=== PATIENT | male | born 1955 | race Caucasian/White ===

== ENCOUNTER 2024-08-04 06:49 | Outpatient (CLI) | payer MEDICARE, SELFPAY ==
[2024-07-22 12:39] VITALS: BMI 27.8
--- NOTE | 2024-07-22 12:45 | PC.NURSE ---
Pre Radiology instructions Report to the outpatient giuliano lai on date __08/04/24___ at time __0830am for procedure Time: _10:30am___ YOU MAY BE MONITORED AT HOSPITAL FOR UP TO 4 HOURS AFTER YOUR PROCEDURE. A visitor will be allowed to accompany the patient into the hospital. You and your visitor will be asked to self-screen and do not enter if you have any COVID symptoms. A mask is OPTIONAL within the hospital. Patients are to have no food or drink 6 hours prior to procedure time Driving will be restricted after the procedure, you must have a person to drive you home. Labs will be drawn in preop area and once reviewed, you will be taken to radiology area for procedure. When the procedure is completed, you will be taken to outpatient where you will be monitored for several hours. You may have one visitor in this area. Other than holding anti-coagulants, patient may take other medication(s) as scheduled. Prior to your appointment date patients are instructed to hold anti-coagulants after discussing with ordering provider to stop. If unable to discontinue anti-coagulants please notify radiologist. ? No aspirin or warfarin (Coumadin) for 7 days prior to the procedure. ? No clopidogrel (Plavix), ticagrelor (Brilinta), prasugrel (Effient) or dabigatran (Pradaxa) for 5 days prior to the procedure. ? No rivaroxaban (Xarelto), apixaban (Eliquis), dipyridamole (Aggrenox or Persantine) or cilostazol (Pletal) for 2 days prior to the procedure. Medications to discontinue per physician: __None Date to take last dose: ___None Please leave all valuables, including medications, at home the day of procedure. The hospital will not accept responsibility for valuables. Wear comfortable, loose fitting clothing.? Follow any additional instructions given to you from ordering provider. Telephone instructions given to ___patient and asked if any additional questions and then verbalized understanding. Patient advised to call scheduling provider office or registration scheduling [phone] if any additional questions.
[2024-08-04] VITALS (7 sets, daily range): BP systolic 129–150; BP diastolic 77–95; PULSE 69–70; RESP 18; TEMP 36.3; O2SAT 99; BMI 27.8
--- NOTE | ~2024-08-04 | XR_ITS ---
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 TECHNIQUE: 5 views of cervical spine including flexion and extension views were obtained. COMPARISON: None. FINDINGS: There is 2 mm retrolisthesis of C5 on C6, which reduces with flexion. There is 9 degrees le vocurvature of upper cervical spine and 11 degrees dextroscoliosis of lower cervical spine. C6 is a b utterfly segment. There is interbody fusion at C4-C5 and C6-C7. There is moderately decreased disc he ight at C3-C4 and mildly decreased disc height at C5-C6. There is severe uncovertebral joint osteoart hritis bilaterally at C3-C4 and on the left at C5-C6. There is multilevel [id number]-vbdkurdx facet join t osteoarthritis. There is mild central canal stenosis at C3-C4 and C5-C6. No prevertebral soft tissu e swelling. IMPRESSION: 1. Anterior and posterior fusion at C4-C5 and C6-C7. 2. Moderate cervical spondylosis. 3. Levocurvature of upper cervical spine and dextroscoliosis of lower cervical spine. Reviewed, dictated and finalized at location A. NSKEEPER LABORER
--- NOTE | ~2024-08-04 | CT_ITS ---
EXAMINATION: 1. XR myelogram spine cervical 2. 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 TECHNIQUE: The procedure including the risks, benefits, and alternatives was discussed with the patie nt. Risks discussed included spinal headache, bleeding, and infection. The patient understood the ris ks and agreed to proceed. A timeout was performed to verify the patient's name, date of , and procedure to be performed. The skin overlying the L3-L4 level was prepped and draped in usual steri le fashion. Subcutaneous 1% lidocaine was used for local anesthesia. A 22 gauge spinal needle was a dvanced under fluoroscopic guidance. 10 mL Omnipaque 300 was injected into the intrathecal space. The needle was removed and the entry site was cleaned and dressed. There were no immediate complication s. Multiple fluoroscopic images of the spine were obtained. Fluoroscopy exposure time was 0.3 minutes . The total number of images was 3. Computed tomography (CT) of the cervical spine was performed with out intravenous contrast. Automated exposure control and iterative reconstruction technique were empl oyed. The dose-length product was 460.26 mGy-cm. COMPARISON: Cervical spine CT 07/09/2024 FINDINGS: CERVICAL MYELOGRAM: Real-time fluoroscopy demonstrates the needle at the L3-L4 level. Contrast is see n to move into the cervical spine with the patient's head tilted down. The spine will be further desc ribed on the post myelogram CT. POST MYELOGRAM CT CERVICAL SPINE: There is 2 mm anterolisthesis of C3 on C4. There is 9 degrees levoc urvature of upper cervical spine and 11 degrees dextroscoliosis of lower cervical spine. There is ant erior and posterior fusion at C4-C5 and C6-C7. Right C4 pedicle is small. C6 is a butterfly segment. There is moderately decreased disc height at C3-C4 and mildly decreased disc height at C5-C6. The fol lowing disc levels are specifically discussed: C2-C3: There is mild bilateral uncovertebral joint osteoarthritis. There is mild bilateral facet join t osteoarthritis. There is no neural foraminal stenosis. There is no central canal stenosis. C3-C4: There is severe bilateral uncovertebral joint osteoarthritis. There is severe right and mild l eft facet joint osteoarthritis. There is moderate bilateral neural foraminal stenosis. There is moder ate central canal stenosis with ventral and dorsal indentation of the spinal cord. C4-C5: There is no uncovertebral joint hypertrophy. There is ankylosis of the facet joints without hy pertrophy. There is no neural foraminal stenosis. There is no central canal stenosis. C5-C6: There is moderate right and severe left uncovertebral joint osteoarthritis. There is mild righ t and moderate left facet joint osteoarthritis. There is mild bilateral neural foraminal stenosis. Th ere is mild central canal stenosis with ventral indentation of the spinal cord. C6-C7: There is no uncovertebral joint hypertrophy. There is ankylosis of the facet joints with mild left hypertrophy. There is mild left neural foraminal stenosis. There is no central canal stenosis. C7-T1: There is severe bilateral uncovertebral joint osteoarthritis. There is mild bilateral facet constantine int osteoarthritis. There is mild bilateral neural foraminal stenosis. There is no central canal sten osis. IMPRESSION: 1. Anterior and posterior fusion at C4-C5 and C5-C6. 2. Moderate cervical spondylosis. 3. Levocurvature of upper cervical spine and dextroscoliosis of lower cervical spine. Reviewed, dictated and finalized at location A. JAVA ENGINEER IMPRESSION: 1. Anterior and posterior fusion at C4-C5 and C5-C6. 2. Moderate cervical spondylosis. 3. Levocurvature of upper cervical spine and dextroscoliosis of lower cervical spine.
[2024-08-04 07:29] LABS: Immature Platelet Fraction Pct 13.5 % (0.9-11.2); Mean Platelet Volume 12.1 fl (7.4-10.4); Platelet Count Result 102 k/mm3 (150-375)
[2024-08-04 07:37] LABS: Prothrombin Time 13.1 Seconds (11.1-14.7)
== END 2024-08-04 11:00 | disposition home or self-care (01) ==
PROVIDERS: PCP Family Medicine; Referring Provider Neurological Surgery; Visit Provider Radiology Diagnostic Radiology
DX: M47.812 Spondylosis without myelopathy or radiculopathy, cervical region (principal); M41.82 Other forms of scoliosis, cervical region; Z98.1 Arthrodesis status; M99.79 Connective tissue and disc stenosis of intervertebral foramina of abdomen and other regions; M51.9 Unspecified thoracic, thoracolumbar and lumbosacral intervertebral disc disorder
CPT/HCPCS: 36415; 62302; 72050; 72126; 85049; 85055; 85610; Q9967

== ENCOUNTER 2024-10-25 14:15 | Outpatient (CLI) | payer MEDICARE, SELFPAY ==
--- NOTE | ~2024-10-25 | CT_ITS ---
EXAMINATION: CT lumbar spine wo con DATE: 10/25/2024 14:55 INDICATION: Spinal stenosis of lumbar region. TECHNIQUE: Computed tomography (CT) of the lumbar spine was performed without intravenous contrast. A utomated exposure control and iterative reconstruction technique were employed. The dose-length produ ct was 732.67 mGy-cm. COMPARISON: None FINDINGS: There is 3 degrees levocurvature of lumbar spine. There is mild chronic anterior wedging of T12 and L1 vertebral bodies. There is mildly decreased disc height at L2-L3 and L3-L4, moderately de creased disc height at L4-L5, and severely decreased disc height at L5-S1. The following disc levels are specifically discussed: L1-L2: The disc does not extend beyond the endplate margin. There is mild bilateral facet joint osteo arthritis. There is no neural foraminal stenosis. There is no central canal stenosis. L2-L3: The disc is bulging. There is mild bilateral facet joint osteoarthritis. There is mild right a nd moderate left neural foraminal stenosis. There is mild central canal stenosis. L3-L4: The disc is bulging. There is moderate bilateral facet joint osteoarthritis. There is moderate bilateral neural foraminal stenosis. There is mild central canal stenosis. L4-L5: The disc is bulging. There is moderate bilateral facet joint osteoarthritis. There is moderate bilateral neural foraminal stenosis. There is mild central canal stenosis. L5-S1: The disc is bulging. There is severe bilateral facet joint osteoarthritis. There is moderate b ilateral neural foraminal stenosis. There is mild central canal stenosis. IMPRESSION: 1. Severe lumbar spondylosis. Reviewed, dictated and finalized at location A. R POOL CLERK
--- OUTSIDE RECORDS SUMMARY | 2024-10-25 16:59 | XMS_ITS | Patient Health Summary ---
Author Organization [facility] Address [address] [place] [address] Care Team Providers Care Bead Maker Name Role Phone Yuli Espinoza MD Primary Care Provider [phone] Note from [facility],non-owned Affiliates and Associated Physician Practices is amultiple site organization consisting of ambulatory clinics and hospital sitesin [place], [place], [place] and [place]. This disclosure is being madepursuant to the Care Everywhere program and may not contain all information available regarding this patient. Last updated 18.[facility] Allergies * Augmentin(Other) * Tamsulosin(Dizziness) * Levofloxacin(Other) * Tramadol(Other) Medications * Be aware that medications may not be up to date on this document. Alwaysverify current medications with the patient. * atorvastatin (LIPITOR) 20 MG tablet Take 20 mg by mouth once daily * aspirin (ASPIRIN) 81 MG chew tablet Take 81 mg by mouth once daily * esomeprazole (NEXIUM) 40 MG capsule Take 40 mg by mouth daily before breakfast * Cholecalciferol (VITAMIN D3) 75 MCG (3000 UT) Take 5,000 Units by mouth once daily * doxazosin (CARDURA) 1 MG tablet Take 1 mg by mouth at bedtime * fluticasone propionate (FLONASE) 50 MCG/ACT nasal spray Webster 2 sprays into each nostril once daily as needed * lactobacillus extra strength (FLORAJEN) capsule Take 1 capsule by mouth once daily * gabapentin (NEURONTIN) 300 MG capsule Take 600 mg by mouth at bedtime * nitroGLYCERIN (NITROSTAT) 0.4 MG tablet Dissolve 0.4 mg under the tongue every 5 minutes as needed for Angina * montelukast (SINGULAIR) 10 MG tablet Take 10 mg by mouth at bedtime * isosorbide mononitrate CR 24hr (IMDUR) 30 MG tablet Take 30 mg by mouth once daily * polyethylene glycol 3350 (MIRALAX) 17 g packet(Started 08/26/2020) Take 17 g by mouth once daily as needed for Constipation * senna-docusate (SENOKOT-S) 8.6-50 MG tablet(Started 08/27/2020) Take 2 tablets by mouth once daily * simethicone (MYLICON) 80 MG chew tablet(Started 08/26/2020) Take 1 tablet by mouth 4 times daily as needed for Gas Pain * guaiFENesin-dextromethorphan (ROBITUSSIN DM) 100-10 MG/5ML syrup(Started 08/26/2020) Take 10 mL by mouth every 6 hours as needed for Cough Active Problems Problem Noted Date Diagnosed Date COVID-19 08/22/2020 Social History Tobacco Use Types Packs/Day Years Used Date Smoking Tobacco: Never Smokeless Tobacco: Never Sex and Gender Information Value Date Recorded Sex Assigned at Not on file Gender Identity Not on file Sexual Orientation Not on file Last Filed Vital Signs Vital Sign Reading Time Taken Comments Blood Pressure 126/77 08/26/2020 4:33 PM NURSE TRANSPLANT Pulse 78 08/26/2020 4:33 PM NURSE TRANSPLANT Temperature 36.8 C (98.3 F) 08/26/2020 4:33 PM NURSE TRANSPLANT Respiratory Rate 18 08/26/2020 4:33 PM NURSE TRANSPLANT Oxygen Saturation 94% 08/26/2020 4:33 PM NURSE TRANSPLANT Inhaled Oxygen Concentration - - Weight 90.7 kg (200 lb) 08/22/2020 9:21 AM NURSE TRANSPLANT Height 180.3 cm (5' 11 ) 08/22/2020 9:21 AM NURSE TRANSPLANT Body Mass Index 27.89 08/22/2020 9:21 AM NURSE TRANSPLANT Procedures * CARDIAC EKG ORDER(Performed 08/30/2020) * CARDIAC RHYTHM STRIP ORDER(Performed 08/30/2020) * COMPREHENSIVE METABOLIC PANEL(Performed 08/26/2020) * CBC W AUTO DIFFERENTIAL(Performed 08/26/2020) * MAGNESIUM BLOOD(Performed 08/25/2020) * COMPREHENSIVE METABOLIC PANEL(Performed 08/25/2020) * CBC W AUTO DIFFERENTIAL(Performed 08/25/2020) * C-REACTIVE PROTEIN(Performed 08/24/2020) * COMPREHENSIVE METABOLIC PANEL(Performed 08/24/2020) * CBC W AUTO DIFFERENTIAL(Performed 08/24/2020) * DIFFERENTIAL MANUAL(Performed 08/23/2020) * COMPREHENSIVE METABOLIC PANEL(Performed 08/23/2020) * CBC W AUTO DIFFERENTIAL(Performed 08/23/2020) * XR CHEST 1VW PORTABLE(Performed 08/22/2020) Performed for COVID-19 * DIFFERENTIAL MANUAL(Performed 08/22/2020) * COMPREHENSIVE METABOLIC PANEL(Performed 08/22/2020) * CBC W AUTO DIFFERENTIAL(Performed 08/22/2020) Results * CARDIAC EKG ORDER (08/30/2020 9:13 PM NURSE TRANSPLANT) Narrative 08/30/2020 9:13 PM NURSE TRANSPLANT Ordered by an unspecified provider. Scanned Document CARDIAC SERVICES ORD ERABLES * CARDIAC RHYTHM STRIP ORDER (08/30/2020 9:13 PM NURSE TRANSPLANT) Narrative 08/30/2020 9:13 PM NURSE TRANSPLANT Ordered by an unspecified provider. Scanned Document CARDIAC SERVICES ORD ERABLES * (ABNORMAL) CBC W AUTO DIFFERENTIAL (08/26/2020 4:35 AM NURSE TRANSPLANT) Only the most recent of5 resultswithin the time period is included. WBC 10.4 4.4 - 10.7 x10E9/L 08/26/2020 4:50 AM NURSE TRANSPLANT [facility] WBC Corrected 08/26/2020 4:50 AM NURSE TRANSPLANT [facility] RBC 5.43(H) 3.80 - 5.40 x10E12/L 08/26/2020 4:50 AM NURSE TRANSPLANT [facility] Hemoglobin 16.4 12.0 - 17.6 gm/dL 08/26/2020 4:50 AM NURSE TRANSPLANT [facility] Hematocrit 47.9 35.2 - 51.7 % 08/26/2020 4:50 AM NURSE TRANSPLANT [facility] MCV 88.2 80.7 - 98.3 fl 08/26/2020 4:50 AM NURSE TRANSPLANT [facility] MCH 30.2 26.7 - 34.0 pg 08/26/2020 4:50 AM NURSE TRANSPLANT [facility] MCHC 34.2 30.8 - 35.9 gm/dL 08/26/2020 4:50 AM NURSE TRANSPLANT [facility] Platelet Count 150(L) 153 - 416 x10E9/L 08/26/2020 4:50 AM NURSE TRANSPLANT [facility] RDW-CV 12.0(L) 12.1 - 14.9 % 08/26/2020 4:50 AM NURSE TRANSPLANT [facility] MPV 12.4 9.4 - 12.9 fl 08/26/2020 4:50 AM NURSE TRANSPLANT [facility] Neutrophils % 80.8(H) 44.0 - 73.0 % 08/26/2020 4:50 AM NURSE TRANSPLANT [facility] Lymphocytes % 9.1(L) 20.0 - 43.0 % 08/26/2020 4:50 AM NURSE TRANSPLANT [facility] Monocytes % 7.2 5.0 - 13.0 % 08/26/2020 4:50 AM NURSE TRANSPLANT [facility] Eosinophils % 0.1 0.0 - 6.0 % 08/26/2020 4:50 AM NURSE TRANSPLANT [facility] Basophils % 0.2 0.0 - 2.0 % 08/26/2020 4:50 AM NURSE TRANSPLANT [facility] Immature Granulocytes 2.6(H) 0 - 1 % 08/26/2020 4:50 AM NURSE TRANSPLANT [facility] Neutrophil Absolute 8.39(H) 2.01 - 7.14 x10E9/L 08/26/2020 4:50 AM NURSE TRANSPLANT [facility] Lymphocytes Absolute 0.94(L) 1.07 - 3.94 x10E9/L 08/26/2020 4:50 AM NURSE TRANSPLANT [facility] Monocytes Absolute 0.75 0.26 - 1.07 x10E9/L 08/26/2020 4:50 AM NURSE TRANSPLANT [facility] Eosinophils Absolute 0.01 0 - 0.47 x10E9/L 08/26/2020 4:50 AM NURSE TRANSPLANT [facility] Basophils Absolute 0.02 0 - 0.08 x10E9/L 08/26/2020 4:50 AM NURSE TRANSPLANT [facility] Immature Granulocytes Absolute 0.27(H) 0.00 - 0.06 x10E9/L 08/26/2020 4:50 AM NURSE TRANSPLANT [facility] nRBC Auto 0 /100 WBC 08/26/2020 4:50 AM NURSE TRANSPLANT [facility] Blood BLOOD SPECIMEN / Unknown Venipuncture / Unknown 08/26/2020 4:35 AM NURSE TRANSPLANT 08/26/2020 4:43 AM NURSE TRANSPLANT Angelita Gaming MD LAB - HEMATOLOGY ORD ERABLES [facility] [address] [place] [address] * (ABNORMAL) COMPREHENSIVE METABOLIC PANEL (08/26/2020 4:35 AM NURSE TRANSPLANT) Only the most recent of5 resultswithin the time period is included. Glucose 133(H) 70 - 105 mg/dL 08/26/2020 5:15 AM [facility] Sodium 136 136 - 145 mmol/L 08/26/2020 5:15 AM [facility] Potassium 5.1 3.5 - 5.1 mmol/L 08/26/2020 5:15 AM [facility] Chloride 104 98 - 107 mmol/L 08/26/2020 5:15 AM [facility] CO2 23 23 - 31 mmol/L 08/26/2020 5:15 AM [facility] Calcium 9.0 8.4 - 10.4 mg/dL 08/26/2020 5:15 AM [facility] Anion Gap 9 8 - 18 mmol/L 08/26/2020 5:15 AM [facility] Comment:Attention clinician: Reference Range change. BUN 24 8.4 - 25.7 mg/dL 08/26/2020 5:15 AM [facility] Creatinine 0.83 0.72 - 1.25 mg/dL 08/26/2020 5:15 AM [facility] Alkaline Phosphatase 134 40 - 150 U/L 08/26/2020 5:15 AM [facility] Comment:Attention clinician: Reference Range change. ALT 177(H) 0 - 61 U/L 08/26/2020 5:15 AM [facility] AST 32 5 - 34 U/L 08/26/2020 5:15 AM [facility] Protein Total 6.3(L) 6.4 - 8.3 gm/dL 08/26/2020 5:15 AM [facility] Albumin 3.2 3.2 - 4.6 gm/dL 08/26/2020 5:15 AM [facility] Bilirubin Total 0.6 0.2 - 1.2 mg/dL 08/26/2020 5:15 AM [facility] Comment:Attention clinician: Reference Range change. eGFR by MDRD >60 >60 mL/min/1.7 3m2 08/26/2020 5:15 AM NURSE TRANSPLANT [facility] eGFR by MDRD >60 >60 mL/min/1.7 3m2 08/26/2020 5:15 AM NURSE TRANSPLANT [facility] Blood BLOOD SPECIMEN / Unknown Venipuncture / Unknown 08/26/2020 4:35 AM NURSE TRANSPLANT 08/26/2020 4:43 AM NURSE TRANSPLANT Angelita Gaming MD LAB - CHEMISTRY GAGE JAUREGUI Performing Organization Address City/[facility] Co de Phone Number [facility] [phone] [place] [id number] * MAGNESIUM BLOOD (08/25/2020 4:09 AM NURSE TRANSPLANT) Magnesium 2.0 1.6 - 2.6 mg/dL 08/25/2020 4:16 PM NURSE TRANSPLANT [facility] Blood BLOOD SPECIMEN / Unknown Venipuncture / Unknown 08/25/2020 4:09 AM NURSE TRANSPLANT 08/25/2020 4:53 AM NURSE TRANSPLANT Angelita Gaming MD LAB - CHEMISTRY GAGE JAUREGUI Performing Organization Address [facility] de Phone Number [facility] [address] [place] [phone] * (ABNORMAL) C-REACTIVE PROTEIN (08/24/2020 4:23 AM NURSE TRANSPLANT) C-Reactive Protein 1.19(H) <=0.50 mg/dL 08/24/2020 5:51 AM NURSE TRANSPLANT [facility] Blood BLOOD SPECIMEN / Unknown Venipuncture / Unknown 08/24/2020 4:23 AM NURSE TRANSPLANT 08/24/2020 5:13 AM NURSE TRANSPLANT Angelita Gaming MD LAB - CHEMISTRY GAGE JAUREGUI Performing Organization Address [facility] Co de Phone Number [facility] [phone] [place] [phone] * (ABNORMAL) DIFFERENTIAL MANUAL (08/23/2020 6:29 AM NURSE TRANSPLANT) Only the most recent of2 resultswithin the time period is included. WBC Auto 8.0 x10E9/L 08/23/2020 11:04 AM [facility] WBC Corrected 08/23/2020 11:04 AM [facility] nRBC 08/23/2020 11:04 AM [facility] Neutrophil % Manual 87(H) 44 - 73 % 08/23/2020 11:04 AM [facility] Lymphocytes % Manual 2(L) 20 - 43 % 08/23/2020 11:04 AM [facility] Monocytes % Manual 5 5 - 13 % 08/23/2020 11:04 AM [facility] Atypical Lymphocyte % Manual 4(H) <=0 % 08/23/2020 11:04 AM [facility] Other Cell Manual 2 % 08/23/2020 11:04 AM [facility] Cells Counted 100 # cells 08/23/2020 11:04 AM [facility] RBC Morphology Normal 08/23/2020 11:04 AM [facility] WBC Morph Normal 08/23/2020 11:04 AM [facility] Clumped Platelets 1+(A) None 08/23/2020 11:04 AM [facility] Blood BLOOD SPECIMEN / Unknown Venipuncture / Unknown 08/23/2020 6:29 AM NURSE TRANSPLANT 08/23/2020 6:41 AM NURSE TRANSPLANT Narrative [facility] - 08/23/2020 11:04 AM NURSE TRANSPLANT Automated platelet is falsely decreased due to clumping. Nessa Huxtable AURICULAR DETOXIFICATION SPECIALIST-PHOTOGRAPH TINTER LAB - HEMATOLOG Y ORDERABLES [facility] [address] [place] [address] * XR CHEST 1VW PORTABLE (08/22/2020 3:14 PM NURSE TRANSPLANT) Anatomical Region Laterality Modality Chest Radiographic Regina ging 08/22/2020 3:24 PM NURSE TRANSPLANT Impressions 08/22/2020 3:24 PM NURSE TRANSPLANT Bilateral lower lobe lung infiltration *Reading Radiologist: Ray Yu on 08/22/2020 at 3:24 PM Narrative 08/22/2020 3:24 PM NURSE TRANSPLANT Chest AP portable INDICATION: Cough and shortness of breath FINDINGS: Frontal view of the chest without prior for comparison shows hazy bilateral lower lobe interstitial infiltration. Left pacemaker is present with lead tips in the right atrium and right ventricle. The heart size is normal. Procedure Note Ray Yu MD - 08/22/2020 Chest AP portable INDICATION: Cough and shortness of breath FINDINGS: Frontal view of the chest without prior for comparison shows hazy bilateral lower lobe interstitial infiltration. Left pacemaker is present with lead tips in the right atrium and right ventricle. The heart size is normal. IMPRESSION Bilateral lower lobe lung infiltration *Reading Radiologist: Ray Yu on 08/22/2020 at 3:24 PM Nessa Huxtable AURICULAR DETOXIFICATION SPECIALIST-PHOTOGRAPH TINTER DIAGNOSTIC IMAG ING ORDERABLES Care Teams Bead Maker Relationship Specialty Start Date End Date Yuli Espinoza MD [address] [place] [address] PCP - General Family Medicine 08/23/20
--- OUTSIDE RECORDS SUMMARY | 2024-10-25 16:59 | XMS_ITS | Referral Summary ---
Author Organization [facility] Address [address] [place] [address] Care Team Providers Care Master Dyer Name Role Phone Yuli Espinoza MD Primary Care Provider Allergies Active Allergy Reactions Criticality Noted Date Comments Amoxicillin-Pot Clavulanate Stomach upset Low 05/23/2019 Levofloxacin Other (See comments) Low 08/22/2020 Confusion, jitteriness Tamsulosin Dizziness Low 06/05/2017 Tramadol Mental status changes Medium 06/05/2017 Made him angry Medications albuterol HFA (PROVENTIL HFA,VENTOLIN HFA,PROAIR HFA) 90 mcg/actuation inhaler 04/14/20 19 Active amLODIPine (NORVASC) 5 mg tablet 03/12/20 19 Active doxazosin (CARDURA) 1 mg tablet 04/23/[address] (NexIUM) 40 mg capsule 02/03/20 19 Active gabapentin (NEURONTIN) 300 mg capsule 04/23/20 19 Active aspirin 81 mg enteric coated tablet Take 81 mg by mouth daily Active cholecalciferol (VITAMIN D-3) 5,000 unit capsule Take 5,000 Units by mouth daily Active cyanocobalamin (Vitamin B-12) 2,500 mcg tablet, sublingualIndicat ions:Prevention of Vitamin B12 Deficiency Active ipratropium-albut charly (DUO-NEB) 0.5-2.5 mg/3 mL nebulizer solutionIndicatio ns:Chronic Obstructive Pulmonary Disease with Bronchospasms Take 3 mL by nebulization every 6 (six) hours 180 mL 3 06/16/20 19 Active Additional Information Patient not taking.Reported on 09/14/2020 montelukast (SINGULAIR) 10 mg tablet 08/27/20 19 Active atorvastatin (LIPITOR) 20 mg tablet TAKE 1 TABLET BY MOUTH NIGHTLY AT BEDTIME 09/13/19 21 Active isosorbide mononitrate ER (IMDUR) 30 mg 24 hr tablet Take 30 mg by mouth daily 03/02/20 20 Active Active Problems Problem Noted Date Diagnosed Date Primary hypertension 10/07/2021 Pneumonia due to COVID-19 virus 09/14/2020 Assessment & Plan (09/14/2020 4:42 PM ENVIRONMENTAL HEALTH AIDE): Currently he does not have any signs or symptoms to suggest in for active infectious process. I will obtain 2 with a chest x-ray in couple of months. He was advised to call if his symptoms get any worse. Obstructive sleep apnea 09/14/2020 Assessment & Plan (09/14/2020 4:43 PM ENVIRONMENTAL HEALTH AIDE): Continue with CPAP at night. Abnormal CT of the chest 06/16/2019 Assessment & Plan (09/16/2019 10:18 AM ENVIRONMENTAL HEALTH AIDE): Previously noted consolidative lesions have resolved completely. Patient does not need any follow-up CT scans. Assessment & Plan (06/19/2019 2:59 PM CDT): Report of CT scan of the chest from [facility] reviewed. As mentioned above will obtain CT scan of the chest with high-resolution with his next visit for further evaluation of lung parenchyma. Dyspnea on exertion 05/08/2019 Assessment & Plan (09/14/2020 4:42 PM ENVIRONMENTAL HEALTH AIDE): Increase physical activity. Patient's PFT's, 2D echocardiogram were normal. He is recovering from COVID pneumonia. Hopefully in the next 4-6 weeks his symptoms will increase significantly. Assessment & Plan (09/16/2019 10:18 AM ENVIRONMENTAL HEALTH AIDE): Recent CT scan of the chest shows mild emphysema. PFTs do not show obstruction, restriction or any abnormality in gas exchange capacity. Patient was advised to increase activity level and follow-up with cardiology. Assessment & Plan (06/19/2019 2:58 PM CDT): Patient was advised to use bronchodilators and Lasix regularly. Will obtain high-resolution CT scan of the chest in 6 months for better evaluation of lung parenchyma. Assessment & Plan (05/08/2019 5:07 PM CDT): Shortness of breath is likely due to CHF and small airway disease. 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 Resolved Problems Problem Noted Date Diagnosed Date Resolved Date Small airways disease 05/08/20192020 Assessment & Plan (09/16/2019 10:17 AM ENVIRONMENTAL HEALTH AIDE): Currently patient is not using any bronchodilators. He was advised to use albuterol inhaler on as needed basis. Assessment & Plan (06/19/2019 2:59 PM CDT): Continue with Symbicort and duo nebs and follow his symptoms. Assessment & Plan (05/08/2019 5:08 PM CDT): Patient complains of cough, intermittent wheezing. PFT's show mid expiratory flow rate of 60%. I will start him on Symbicort and follow his symptoms. Restrictive lung disease 05/06/201908/2019 Assessment & Plan (05/08/2019 5:07 PM CDT): PFTs reviewed. Patient does not have restrictive lung disease based on PFTs. Immunizations Immunization Administration Dates Next Due Influenza, Quadrivalent, Spl it, Preservative Free, Intramuscular 05/24/2019 Influenza, Trivalent, High D ose, Split, Preservative Free, Intramuscular 07/08/2018 Pneumococcal Conjugate PCV 13 10/22/2018 Tdap 04/16/2012,2012 ZOSTER LIVE 07/03/2015,09/08/2014 Social History Tobacco Use Types Packs/Day Years Used Date Smoking Tobacco: Former Cigarettes 1 17 1 967 - 1983 Smokeless Tobacco: Former Quit: 2016 Personal Safety Answer Date Recorded Getting School Help Needed Not on file 11/08 Sex and Gender Information Value Date Recorded Sex Assigned at Not on file Legal Sex Male 8:04 PM ENVIRONMENTAL HEALTH AIDE Gender Identity Not on file Sexual Orientation Not on file Last Filed Vital Signs Vital Sign Reading Time Taken Comments Blood Pressure 132/60 10/03/2021 1:51 PM ENVIRONMENTAL HEALTH AIDE Pulse 64 10/03/2021 1:51 PM ENVIRONMENTAL HEALTH AIDE Temperature 37 C (98.6 F) 10/03/2021 1:51 PM ENVIRONMENTAL HEALTH AIDE Respiratory Rate 18 10/03/2021 1:51 PM ENVIRONMENTAL HEALTH AIDE Oxygen Saturation 93% 10/03/2021 1:51 PM ENVIRONMENTAL HEALTH AIDE Inhaled Oxygen Concentration - - Weight 92.5 kg (204 lb) 10/03/2021 1:51 PM ENVIRONMENTAL HEALTH AIDE Height 180.3 cm (5' 11 ) 10/03/2021 1:51 PM ENVIRONMENTAL HEALTH AIDE Body Mass Index 28.45 10/03/2021 1:51 PM ENVIRONMENTAL HEALTH AIDE Plan of Treatment Not on file Insurance [employer] [place] [employer] OPEN ACCESS [facility] [id number] Care Teams Master Dyer Relationship Specialty Start Date End Date Yuli Espinoza MD PCP - General Family Medicine 04/08/19
--- OUTSIDE RECORDS SUMMARY | 2024-10-25 16:59 | XMS_ITS | Referral Summary ---
Author Organization [facility] Address [address] [place] [address] Care Team Providers Care Bellman Driver Name Role Phone Yuli Espinoza MD Primary Care Provider Source Comments [facility],non-owned Affiliates and Associated Physician Practices is amultiple site organization consisting of ambulatory clinics and hospital sitesin [place] and [place]. This disclosure is being madepursuant to the Care Everywhere program and may not contain all information available regarding this patient. Last updated 18.[facility] [place] Allergies Active Allergy Reactions Criticality Noted Date Comments Augmentin Other 08/22/2020 unknown Tamsulosin Dizziness 08/22/2020 Levofloxacin Other 08/22/2020 Confusion, jitteriness Tramadol Other 08/22/2020 Itching, urinary retention Medications * Be aware that medications may not be up to date on this document. Alwaysverify current medications with the patient. Medication Sig Dispensed Refills Start Date End Date Status atorvastatin (LIPITOR) 20 MG tablet Take 20 mg by mouth once daily Active aspirin (ASPIRIN) 81 MG chew tablet Take 81 mg by mouth once daily Active esomeprazole (NEXIUM) 40 MG capsule Take 40 mg by mouth daily before breakfast Active Cholecalciferol (VITAMIN D3) 75 MCG (3000 UT) Take 5,000 Units by mouth once daily Active doxazosin (CARDURA) 1 MG tablet Take 1 mg by mouth at bedtime Active fluticasone propionate (FLONASE) 50 MCG/ACT nasal spray [place] 2 sprays into each nostril once daily as needed Active lactobacillus extra strength (FLORAJEN) capsule Take 1 capsule by mouth once daily Active gabapentin (NEURONTIN) 300 MG capsule Take 600 mg by mouth at bedtime Active nitroGLYCERIN (NITROSTAT) 0.4 MG tablet Dissolve 0.4 mg under the tongue every 5 minutes as needed for Angina Active montelukast (SINGULAIR) 10 MG tablet Take 10 mg by mouth at bedtime Active isosorbide mononitrate CR 24hr (IMDUR) 30 MG tablet Take 30 mg by mouth once daily Active polyethylene glycol 3350 (MIRALAX) 17 g packet Take 17 g by mouth once daily as needed for Constipation 30 packet 08/26/2020 Active senna-docusate (SENOKOT-S) 8.6-50 MG tablet Take 2 tablets by mouth once daily 30 tablet 08/27/2020 Active simethicone (MYLICON) 80 MG chew tablet Take 1 tablet by mouth 4 times daily as needed for Gas Pain 08/26/2020 Active guaiFENesin-dextrom ethorphan (ROBITUSSIN DM) 100-10 MG/5ML syrup Take 10 mL by mouth every 6 hours as needed for Cough 250 mL 08/26/2020 Active Active Problems Problem Noted Date Diagnosed [...] Comments Blood Pressure 126/77 08/26/2020 4:33 PM DISPATCHER CHIEF OIL Pulse 78 08/26/2020 4:33 PM DISPATCHER CHIEF OIL Temperature 36.8 C (98.3 F) 08/26/2020 4:33 PM DISPATCHER CHIEF OIL Respiratory Rate 18 08/26/2020 4:33 PM DISPATCHER CHIEF OIL Oxygen Saturation 94% 08/26/2020 4:33 PM DISPATCHER CHIEF OIL Inhaled Oxygen Concentration - - Weight 90.7 kg (200 lb) 08/22/2020 9:21 AM DISPATCHER CHIEF OIL Height 180.3 cm (5' 11 ) 08/22/2020 9:21 AM DISPATCHER CHIEF OIL Body Mass Index 27.89 08/22/2020 9:21 AM DISPATCHER CHIEF OIL Plan of Treatment Not on file Advance Directives * Full Code (Latest Code Status on File) Date Activated Date Inactivated Comments 08/22/2020 10:24 AM 08/26/2020 6:30 PM Care Teams Bellman Driver Relationship Specialty Start Date End Date Yuli Espinoza MD [address] [place] [address] PCP - General Family Medicine 08/23/20
--- OUTSIDE RECORDS SUMMARY | 2024-10-25 17:00 | XMS_ITS | Clinical Summary ---
Author Organization [facility] Address [address] [place] [address] Care Team Providers Care Loan Operations Specialist Name Role Phone Yuli Espinoza MD Primary [...] 09/14/2020 Assessment & Plan (09/14/2020 4:42 PM RADIO SPORTSCASTER): Currently he does not have any signs or symptoms to suggest in for active infectious process. I will obtain 2 with a chest x-ray in couple of months. He was advised to call if his symptoms get any worse. Obstructive sleep apnea 09/14/2020 Assessment & Plan (09/14/2020 4:43 PM RADIO SPORTSCASTER): Continue with CPAP at night. Abnormal CT of the chest 06/16/2019 Assessment & Plan (09/16/2019 10:18 AM RADIO SPORTSCASTER): Previously noted consolidative lesions have resolved completely. Patient does not need any follow-up CT scans. Assessment & Plan (06/19/2019 2:59 PM CDT): Report of CT scan of the chest from [facility] reviewed. As mentioned above will obtain CT scan of the chest with high-resolution with his next visit for further evaluation of lung parenchyma. Dyspnea on exertion 05/08/2019 Assessment & Plan (09/14/2020 4:42 PM RADIO SPORTSCASTER): Increase physical activity. Patient's PFT's, 2D echocardiogram were normal. He is recovering from COVID pneumonia. Hopefully in the next 4-6 weeks his symptoms will increase significantly. Assessment & Plan (09/16/2019 10:18 AM RADIO SPORTSCASTER): Recent CT scan of the chest shows [...] 05/08/20192020 Assessment & Plan (09/16/2019 10:17 AM RADIO SPORTSCASTER): Currently patient is not using any bronchodilators. [...] 13 10/22/2018 Tdap 04/16/2012,2012 ZOSTER LIVE 07/03/2015,09/08/2014 Surgical History Surgery Date Site/Laterality Comments HEMORROIDECTOMY INSERT / REPLACE / REMOVE PACEMAKER Medical History Medical History Date Comments Pacemaker Social History Tobacco Use Types Packs/Day Years Used Date Smoking Tobacco: Former Cigarettes 1 17 1 7 - 1983 Smokeless Tobacco: Former Quit: 2016 Personal Safety Answer Date Recorded Getting School Help Needed Not on file 11/08 Sex and Gender Information Value Date Recorded Sex Assigned at Not on file Legal Sex Male 8:04 PM RADIO SPORTSCASTER Gender Identity Not on file Sexual Orientation Not on file Obstetrics History Last Filed Vital Signs Vital Sign Reading Time Taken Comments Blood Pressure 132/60 10/03/2021 1:51 PM RADIO SPORTSCASTER Pulse 64 10/03/2021 1:51 PM RADIO SPORTSCASTER Temperature 37 C (98.6 F) 10/03/2021 1:51 PM RADIO SPORTSCASTER Respiratory Rate 18 10/03/2021 1:51 PM RADIO SPORTSCASTER Oxygen Saturation 93% 10/03/2021 1:51 PM RADIO SPORTSCASTER Inhaled Oxygen Concentration - - Weight 92.5 kg (204 lb) 10/03/2021 1:51 PM RADIO SPORTSCASTER Height 180.3 cm (5' 11 ) 10/03/2021 1:51 PM RADIO SPORTSCASTER Body Mass Index 28.45 10/03/2021 1:51 PM RADIO SPORTSCASTER Plan of Treatment Not on file Insurance [employer] [facility] [employer] OPEN ACCESS [facility] [id number] Care Teams Loan Operations Specialist Relationship Specialty Start Date End Date Yuli Epsinoza MD PCP - General Family Medicine 04/08/19
--- OUTSIDE RECORDS SUMMARY | 2024-10-25 17:00 | XMS_ITS | Clinical Summary ---
Author Organization [facility] Address [address] [place] [address] Phone Care Team Providers Care Dairy Helper Name Role Phone Yuli Espinoza MD Primary Care Provider Social History Tobacco Use Types Packs/Day Years Used Date Smoking Tobacco: Never Assessed Sex and Gender Information Value Date Recorded Sex Assigned at Not on file Legal Sex Male 1:55 PM CDT Gender Identity Not on file Sexual Orientation Not on file Plan of Treatment Health Maintenance Due Date Last Done Comments Hepatitis C Virus (HCV) Screening 1955 Colonoscopy 1998 Colorectal Cancer Screening 1998 Cologuard 2003 Immunochemical Fecal Occult Blood 2003 Pneumococcal Immunization (5 0+ years) (1 of 1 - PCV) 2003 Zoster Immunization (2 of 3) 08/28/2015 07/03/2015 Influenza Immunization (#1) 2024 SARS-COV-2 Immunization ( - 2023- season) 2024 Respiratory Syncytial Virus (RSV) Immunization (Adult) (1 - 1-dose 75+ series) 02/08/2028 DTaP/Tdap/Td Immunization Discontinued 04/16/2012 TdaP Immunization Completed 04/16/2012 Hepatitis B Immunization Aged Out No longer eligible based on patient's age to complete this topic Meningococcal Immunization (ACWY) Aged Out No longer eligible based on patient's age to complete this topic Rotavirus Immunization Aged Out No lo nger eligible based on patient's age to complete this topic Insurance Care Teams Dairy Helper Relationship Specialty Start Date End Date Yuli Espinoza MD [address] [place] [address] PCP - General Family Medicine 01/23/18
--- OUTSIDE RECORDS SUMMARY | 2024-10-25 17:00 | XMS_ITS | Clinical Summary ---
Author Organization [facility] Address [address] [place] [address] Care Team Providers Care Assessment Counselor Name Role Phone Yuli Espinoza MD Primary Care Provider Source Comments [facility],non-owned Affiliates and Associated Physician Practices is amultiple site organization consisting of ambulatory clinics and hospital sitesin [place], [place], [place] and [place]. This disclosure is being madepursuant to the Care Everywhere program and may not contain all information available regarding this patient. Last updated 18.[facility] Allergies Active Allergy Reactions Criticality Noted Date [...] fluticasone propionate (FLONASE) 50 MCG/ACT nasal spray [place] 2 sprays into each nostril once daily [...] Problem Noted Date Diagnosed Date COVID-19 08/22/2020 Family History Medical History Relation Name Comments Other Brother Diabetes - Type 2 Sister Relation Name Status Comments Brother Sister Social History Tobacco Use Types Packs/Day Years Used Date Smoking Tobacco: Never Smokeless Tobacco: Never Sex and Gender Information Value Date Recorded Sex Assigned at Not on file Gender Identity Not on file Sexual Orientation Not on file Last Filed Vital Signs Vital Sign Reading Time Taken Comments Blood Pressure 126/77 08/26/2020 4:33 PM CRUSHER AND BINDER OPERATOR Pulse 78 08/26/2020 4:33 PM CRUSHER AND BINDER OPERATOR Temperature 36.8 C (98.3 F) 08/26/2020 4:33 PM CRUSHER AND BINDER OPERATOR Respiratory Rate 18 08/26/2020 4:33 PM CRUSHER AND BINDER OPERATOR Oxygen Saturation 94% 08/26/2020 4:33 PM CRUSHER AND BINDER OPERATOR Inhaled Oxygen Concentration - - Weight 90.7 kg (200 lb) 08/22/2020 9:21 AM CRUSHER AND BINDER OPERATOR Height 180.3 cm (5' 11 ) 08/22/2020 9:21 AM CRUSHER AND BINDER OPERATOR Body Mass Index 27.89 08/22/2020 9:21 AM CRUSHER AND BINDER OPERATOR Plan of Treatment Health Maintenance Due Date Last Done Comments COLOGUARD (AGES 45-75) - COL ON CA SCREENING 1953 COLON MONITORING 1953 COLONOSCOPY - COLON CA SCREENING 1953 CT COLONOGRAPHY - COLON CA SCREENING 1953 Colorectal Cancer Screening 1953 FIT - COLON CA SCREENING 1953 FLEX SIG - COLON CA SCREENING 1953 MEDICARE AWV 12 MONTHS 1953 HEPATITIS C SCREENING 02/03/1971 DTAP/TDAP/TD VACCINES (1 - Tdap) 02/08/1972 PNEUMOCOCCAL VACCINE 50+ (1 of 1 - PCV) 2003 ZOSTER VACCINE (1 of 2) 2003 COVID-19 VACCINE (1 - 2023-2 5 season) 2024 INFLUENZA VACCINE (#1) 2024 9, 07/08/2018 DEPRESSION SCREENING 09/08/2024 Respiratory Syncytial Virus (RSV) Vaccine Pt: or over 60 yrs (1 - 1-dose 75+ series) 02/08/2028 HEPATITIS B VACCINE Aged Out No longe r eligible based on patient's age to complete this topic HIB VACCINE Aged Out No longer eligi ble based on patient's age to complete this topic HPV VACCINE Aged Out No longer eligi ble based on patient's age to complete this topic MENINGOCOCCAL (Group B) VACCINE Aged Out No longer eligible b ased on patient's age to complete this topic MENINGOCOCCAL VACCINE Aged Out No jessica denia eligible based on patient's age to complete this topic Advance Directives * Full Code (Latest Code Status on File) Date Activated Date Inactivated Comments 08/22/2020 10:24 AM 08/26/2020 6:30 PM Care Teams Assessment Counselor Relationship Specialty Start Date End Date Yuli Espinoza MD [address] [place] [address] PCP - General Family Medicine 08/23/20
== END 2024-10-25 14:16 | disposition home or self-care (01) ==
PROVIDERS: PCP Family Medicine; Visit Provider Pain Medicine Pain Medicine
DX: M47.816 Spondylosis without myelopathy or radiculopathy, lumbar region (principal)
CPT/HCPCS: 72131